=== PATIENT | male | born 1955 | race Caucasian/White ===

== ENCOUNTER 2018-02-11 10:15 | Outpatient (RCR) | payer BC | END 2018-02-11 10:54 | disposition home or self-care (01) | LOC: WSC 10:15 | DX: Z47.1 Aftercare following joint replacement surgery (principal); Z96.652 Presence of left artificial knee joint ==

== ENCOUNTER → 2020-05-23 | Outpatient (CLI) | payer MEDICARE, OTHER | LOC: COL.RAD 12:34 | DX: M19.031 Primary osteoarthritis, right wrist (principal) | CPT/HCPCS: J3301; Q9967 ==